=== PATIENT | female | born 1970 | race Caucasian/White ===

== ENCOUNTER 2018-10-27 19:07 | Emergency (ER) | payer OTHER ==
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
[2018-10-27 21:41] VITALS: BMI 33.0
[2018-10-27] MEDS ORDERED: ACETAMINOPHEN 500 MG TABLET (FP) PO ONE (22:11)
[2018-10-27] MEDS ORDERED: ACETAMINOPHEN 325 MG TABLET (FP) ONE (22:16)
[2018-10-27 23:27] VITALS: BP 126/78; PULSE 72; TEMP 98
== END 2018-10-27 23:27 | disposition home or self-care (01) ==
LOC: JER 19:07
CPT/HCPCS: 71046-TC-FY; 99282-25